=== PATIENT | female | born 1945 | race African-American/Black ===

== ENCOUNTER 2021-10-12 14:02 | Emergency (ER) | payer MEDICARE ==
[~2021-10-12] VITALS: Ht 157.5 cm; Wt 59.0 kg
[2021-10-12] MEDS ORDERED: ASPI81TA31 PO (14:17)
[2021-10-12] MEDS ORDERED: IBUP-1953 PO (14:17)
[2021-10-12] MEDS ORDERED: HYDR25TA4 PO (14:17)
[2021-10-12] MEDS ORDERED: CLON0.1T PO (14:17)
[2021-10-12] MEDS ORDERED: ATEN25TA PO (14:17)
[2021-10-12] MEDS ORDERED: LISI20TA30 PO (14:17)
[2021-10-12 14:36] LABS: HEMATOCRIT 44.1 % (31.2-41.9); MEAN CORPUSCULAR HEMOGLOBIN 29.1 uug (24.7-32.8); MEAN CORPUSCULAR VOLUME 88.5 fL (75.5-95.3); PLATELET COUNT (AUTO) 180 K/uL (179-408)
[2021-10-12 14:47] LABS: ALANINE AMINOTRANSFERASE < 6 U/L (14-59); ALKALINE PHOSPHATASE 48 U/L (50-136); ASPARTATE AMINOTRANSFERASE 6 U/L (15-37); BILIRUBIN,TOTAL 1.1 mg/dL (0.2-1.0); CARBON DIOXIDE 24 mmol/L (21-32); CHLORIDE 106 mmol/L (98-107); GLUCOSE 97 mg/dL (74-106); POTASSIUM 3.7 mmol/L (3.5-5.1); TOTAL PROTEIN, SERUM 7.5 g/dL (6.4-8.2); UREA NITROGEN, BLOOD 13 mg/dL (7-18)
--- NOTE | 2021-10-12 14:58 | NUR ---
Pt had GL fall and hit head/face on ground, denies KO. Pt denies CP, SOB, dizziness, n/v, no other complaints, no distress noted.
[2021-10-12] MEDS ORDERED: TDAP DIPH,PERTUSS,TET VAC/PF 0.5 ML DISP.SYRIN IM ONE ×2 (15:30→16:46)
--- NOTE | 2021-10-12 15:45 | NUR ---
Gave pt ice pack for her lip and mouth swelling.
[2021-10-12] MEDS ORDERED: HYDR-3972 PO (16:04)
[2021-10-12] MEDS ORDERED: LIDOCAINE 1%-EPI 1:100,000 20 ML VIAL IJ ONE (16:15)
[2021-10-12] MEDS ORDERED: LIDOCAINE 1%-EPI 1:100,000 20 ML VIAL ONE (16:19)
[2021-10-12] MEDS ORDERED: CHLO473M5 PO (16:35)
--- NOTE | 2021-10-12 17:06 | NUR ---
Gave pt RX and d/c instructions, ptand family verbalized understanding.
== END 2021-10-12 17:23 | disposition home or self-care (01) ==
LOC: ER 14:02
DX: S02.40CA Maxillary fracture, right side, initial encounter for closed fracture (principal); K08.89 Other specified disorders of teeth and supporting structures; S80.212A Abrasion, left knee, initial encounter; S00.83XA Contusion of other part of head, initial encounter; S01.511A Laceration without foreign body of lip, initial encounter; W01.0XXA Fall on same level from slipping, tripping and stumbling without subsequent striking against object, initial encounter; Y93.89 Activity, other specified; Y92.512 Supermarket, store or market as the place of occurrence of the external cause; I10 Essential (primary) hypertension; Z79.899 Other long term (current) drug therapy; H54.61 Unqualified visual loss, right eye, normal vision left eye; H26.9 Unspecified cataract
CPT/HCPCS: 99285; 70450; 80053; 85025; 85610; 36415; 73564; 70486; 72125; 90715; 90471; 12011; J3490; A4663